=== PATIENT | male | born 1965 | race Caucasian/White ===

== ENCOUNTER → 2020-03-07 | Outpatient (CLI) | payer MEDICARE | LOC: US 13:30 | PROVIDERS: ATTEND Family Medicine | DX: R22.32 Localized swelling, mass and lump, left upper limb (principal) | CPT/HCPCS: 76882 ==

== ENCOUNTER → 2020-11-04 | Outpatient (CLI) | payer MEDICARE | LOC: US 14:36 | PROVIDERS: ATTEND Family Medicine | DX: N50.9 Disorder of male genital organs, unspecified (principal) | CPT/HCPCS: 76870; 93976 ==

== ENCOUNTER → 2021-03-09 | Day surgery (SDC) | payer MEDICARE ==
[2021-03-08 11:53] LABS: BASOPHILS # (AUTO) 0.1 (0.0-0.1); BASOPHILS % 0.6 % (0.0-1.0); EOSINOPHILS # (AUTO) 0.1 (0.0-0.4); HEMOGLOBIN 15.5 g/dL (14.0-18.0); LYMPHOCYTES # (AUTO) 2.2 (1.0-3.2); LYMPHOCYTES % 24.7 % (18.0-39.1); MEAN CORPUSCULAR HEMOGLOBIN 30.2 pg (28-32); MEAN CORPUSCULAR VOLUME 91.6 fL (81-99); MONOCYTES # (AUTO) 0.8 (0.2-0.8); MONOCYTES % 9.1 % (4.4-11.3); NEUTROPHILS # (AUTO) 5.8 (2.1-6.9); NEUTROPHILS % 64.2 % (38.7-80.0); PLATELET COUNT 287 x10e3/uL (140-360); RED BLOOD COUNT 5.13 x10e6/uL (4.3-5.7)
[~2021-03-09] MED LIST: ASPIRIN81 MG PO; BRILINTA90 MG; CRESTOR10 MG PO; EPHEDRINE SULFATE INJ 50 MG/ML VIAL ONE; FAMOTIDINE20 MG PO; FENTANYL CITRATE/PF 100MCG/2 ML INJ ONE; FLOMAX0.4 MG PO; HYOSCYAMINE SULFATE 0.5 MG/ML INJ ONE; LIDOCAINE HCL 2% LOCAL INJ 5 ML SDV VIAL INJ ONE; MIDAZOLAM HCL 2 MG/2 ML VIAL ONE; OMEGA 3 1,0001 EACH PO; OMEPRAZOLE40 MG PO; PANTOPRAZOLE SO20 MG; PHENOBARBITAL30 MG PO; PROPOFOL IV EMULSION 10 MG/ML 20 ML VIAL ONE; ULTRAM50 MG PO; VITAMIN C500 MG PO; VITAMIN D32400 UNIT/; ZEBETA10 MG PO
[2021-03-09 17:35] VITALS: BP 116/86
[2021-03-09 17:38] LABS: ALBUMIN 3.9 g/dL (3.5-5.0); ALBUMIN/GLOBULIN RATIO 1.3 (0.8-2.0); CALCIUM 8.7 mg/dL (8.4-10.2); CREATININE, SERUM 0.93 mg/dL (0.72-1.25)
== END | disposition home or self-care (01) ==
LOC: OR 11:31
PROVIDERS: ATTEND Internal Medicine Gastroenterology
DX: K29.70 Gastritis, unspecified, without bleeding (principal); K63.5 Polyp of colon; K20.90 Esophagitis, unspecified without bleeding; I85.00 Esophageal varices without bleeding; K22.89 Other specified disease of esophagus; K59.09 Other constipation; K64.8 Other hemorrhoids; R06.09 Other forms of dyspnea; I25.10 Atherosclerotic heart disease of native coronary artery without angina pectoris; I25.2 Old myocardial infarction; I11.0 Hypertensive heart disease with heart failure; I50.9 Heart failure, unspecified; E78.5 Hyperlipidemia, unspecified; N39.0 Urinary tract infection, site not specified; Z01.810 Encounter for preprocedural cardiovascular examination; Z01.812 Encounter for preprocedural laboratory examination; Z20.822 Contact with and (suspected) exposure to COVID-19; Z79.02 Long term (current) use of antithrombotics/antiplatelets; Z79.82 Long term (current) use of aspirin; Z79.899 Other long term (current) drug therapy; Z68.31 Body mass index [BMI] 31.0-31.9, adult
CPT/HCPCS: 36415 ×2; 43239; 43450; 45380; 80053; 85025; 93005; J1980; J2001; J2250; J2704; J3010; U0002; 45378

== ENCOUNTER → 2021-10-18 | Outpatient (CLI) | payer MEDICARE ==
[~2021-10-18] MED LIST changes: +CLOTRIMAZOLE-BE15 GM TOP; +CYCLOBENZAPRINE10 MG PO; +DERMOTIC20 ML EACH EAR; -EPHEDRINE SULFATE INJ 50 MG/ML VIAL ONE; -FENTANYL CITRATE/PF 100MCG/2 ML INJ ONE; -HYOSCYAMINE SULFATE 0.5 MG/ML INJ ONE; -LIDOCAINE HCL 2% LOCAL INJ 5 ML SDV VIAL INJ ONE; -MIDAZOLAM HCL 2 MG/2 ML VIAL ONE; -PROPOFOL IV EMULSION 10 MG/ML 20 ML VIAL ONE; +TRIAMCINOLONE A15 GM TOP; +[UNRECOGNIZED DRUG - OTHER]
== END ==
LOC: US 08:02
PROVIDERS: ATTEND Internal Medicine Gastroenterology
DX: K29.70 Gastritis, unspecified, without bleeding (principal); R11.0 Nausea; R10.10 Upper abdominal pain, unspecified; Z86.010 Personal history of colon polyps
CPT/HCPCS: 76700

== ENCOUNTER → 2021-12-05 | Outpatient (CLI) | payer MEDICARE | LOC: NM 07:32 | PROVIDERS: ATTEND Internal Medicine Gastroenterology | DX: R10.9 Unspecified abdominal pain (principal) | CPT/HCPCS: 78226; A9537 ==

== ENCOUNTER → 2024-02-19 | Outpatient (REF) | payer MEDICARE ==
[~2024-02-19] MED LIST changes: +ALFUZOSIN HCL10 MG; +AMOXICILLIN500 MG PO; +FINASTERIDE5 MG PO; +FISH OIL 1,0001 EAC7; +IOPAMIDOL 370 MG/ML 100 ML INFUS..BTL INJ ONE; +MECLIZINE HCL25 MG PO; +PROTONIX20 MG PO; +TYLENOL ARTHRITIS
[2024-02-19 13:56] LABS: CREATININE, SERUM 0.84 mg/dL (0.72-1.25)
== END ==
LOC: CT 13:14
PROVIDERS: ATTEND Family Medicine
DX: R04.2 Hemoptysis (principal); R93.89 Abnormal findings on diagnostic imaging of other specified body structures
CPT/HCPCS: 36415; 71260; 82565; 84520; Q9967